=== PATIENT | female | born 1985 | race Caucasian/White ===

== ENCOUNTER 2019-05-21 01:40 | Emergency (ER) | payer SELFPAY ==
[~2019-05-21] VITALS: Ht 162.6 cm; Wt 163.3 kg
--- OUTSIDE RECORDS SUMMARY | 2019-05-21 01:52 | XMS REPORT ---
Author Author [facility] Address Unknown Phone Unavailable Care Team Providers Care Study Lead Name Role Phone Unavailable Unavailable Payers Payer Name Policy Type Policy Number Effective Date Expiration Date Problems This patient has no known problems. Allergies, Adverse Reactions, Alerts Allergy Name Allergy Type Status Severity Reaction(s) Onset Date Inactive Date Treating Clinician Comments tramadol DA Active SV 2019-01-09 00:00:00 No Known Contrast Allergies DA Active U 2008-04-17 00:00:00 No Known Drug Allergies DA Active U 2008-04-17 00:00:00 No Known Food Allergies DA Active U 2008-04-17 00:00:00 No Known Other Allergies DA Active U 2008-04-17 00:00:00 Medications This patient has no known medications. Results Test Description Test Time Test Comments Text Results Atomic Results Result Comments UR HCG QUAL 2019-01-09 14:23:00 UR HCG QUAL (test code=HCGQLU) NEGATIVE This HCGQL test is NOT applicable for MALE patients.Check with nurse about probable order error.If Tumor Marker Test needed, nurse should order test "HCGTU"(Test #550.81026)
[2019-05-21] MEDS ORDERED: DIFLUCAN150 MG PO (02:11)
[2019-05-21] MEDS ORDERED: FLAGYL500 MG PO (02:11)
[2019-05-21] MEDS ORDERED: AUGMENTIN 500-1 EACH PO (02:12)
[2019-05-21] MEDS ORDERED: CEFTRIAXONE SOD 1 GM/NS 50 ML 50 ML IV ONE (02:15)
[2019-05-21] MEDS ORDERED: CEFTRIAXONE SOD 1 GM VIAL ONE (02:20)
[2019-05-21] MEDS ORDERED: AZITHROMYCIN 250 MG TAB ONE (02:20)
[2019-05-21] MEDS ORDERED: LIDOCAINE HCL 1% LOCAL INJ 20 ML VIAL ONE (02:21)
[2019-05-21] MEDS ORDERED: CEFTRIAXONE SOD 1 GM VIAL IM ONE (02:30)
[2019-05-21] MEDS ORDERED: HYDROCODONE/APAP 5MG-325MG TAB PO ONE (02:30)
[2019-05-21] MEDS ORDERED: HYDROCODONE/APAP 5MG-325MG TAB ONE (02:33)
[2019-05-21 03:05] VITALS: BP 105/57
[2019-05-21] MEDS ORDERED: AZITHROMYCIN 250 MG TAB PO SCH (09:00)
== END 2019-05-21 03:03 | disposition home or self-care (01) ==
LOC: FSED 01:40
DX: L03.818 Cellulitis of other sites (principal); F17.210 Nicotine dependence, cigarettes, uncomplicated
CPT/HCPCS: 81003; 96372; 99284; J0696; J2001

== ENCOUNTER 2019-06-08 12:39 | Emergency (ER) | payer SELFPAY ==
[~2019-06-08] VITALS: Ht 162.6 cm; Wt 163.3 kg
[~2019-06-08 12:39] MED LIST: AUGMENTIN 500-1 EACH PO; DIFLUCAN150 MG PO; FLAGYL500 MG PO
[2019-06-08] MEDS ORDERED: BENZONATATE 100 MG CAP PO ONE (13:15)
[2019-06-08] MEDS ORDERED: ACETAMINOPHEN/CODEINE 300MG - 30MG TAB PO ONE (13:15)
[2019-06-08] MEDS ORDERED: GUAIFENESIN 600 MG TAB PO PRN (13:15)
[2019-06-08 13:31] LABS: STREPTOCOCCUS GRP A ANTIGEN NEGATIVE (NEGATIVE)
[2019-06-08 13:42] LABS: INFLUENZAE A&B ANTIGEN (RAPID) NEGATIVE (NEGATIVE)
[2019-06-08 14:31] VITALS: BP 152/95
== END 2019-06-08 14:38 | disposition home or self-care (01) ==
LOC: ER 12:39
DX: R05 Cough (principal); J20.9 Acute bronchitis, unspecified
CPT/HCPCS: 83518; 87070; 87186; 87400; 99283